=== PATIENT | male | born 1995 | race Two or more races ===

== ENCOUNTER 2023-09-12 10:03 | Emergency (ER) | payer OTHER ==
[~2023-09-12] VITALS: Ht 180.3 cm; Wt 100.0 kg
[2023-09-12] MEDS: SODIUM CHLORIDE 0.9% 1,000 ML IV ONE ×2 (10:34→13:52)
[2023-09-12 10:58] LABS: ALCOHOL, URINE DRUG SCREEN NEGATIVE (NEGATIVE); AMPHET/METH SCREEN,URINE NEGATIVE (NEGATIVE); BARBITURATE SCREEN, URINE NEGATIVE (NEGATIVE); BENZODIAZEPINES SCREEN,URINE NEGATIVE (NEGATIVE); CANNABINOID SCREEN,URINE NEGATIVE (NEGATIVE); COCAINE SCREEN,URINE NEGATIVE (NEGATIVE); METHADONE SCREEN, URINE NEGATIVE (NEGATIVE); OPIATE SCREEN,URINE NEGATIVE (NEGATIVE); PHENCYCLIDINE SCREEN,URINE NEGATIVE (NEGATIVE)
[2023-09-12] MEDS: NALOXONE HCL 1 MG/ML 2 ML SYRINGE IVP ONE (13:52)
[2023-09-12 14:18] VITALS: BP 120/54; PULSE 64; RESP 16; TEMP 98.2
== END 2023-09-12 14:33 | disposition home or self-care (01) ==
LOC: EMS 10:03
DX: T40.411A Poisoning by fentanyl or fentanyl analogs, accidental (unintentional), initial encounter (principal); R06.02 Shortness of breath; Z79.899 Other long term (current) drug therapy; Y92.89 Other specified places as the place of occurrence of the external cause
CPT/HCPCS: 99285; 96374; 96361; 71045; 93005; 80307; J2310; J7030